=== PATIENT | female | born 1975 | race Caucasian/White ===

== ENCOUNTER 2022-02-11 16:40 | Inpatient (IN) ==
[2022-02-11] MEDS ORDERED: NS 1,000 ML IV 1,000 ML IV ONE (17:10)
[2022-02-11] MEDS ORDERED: ATIVAN INJ 2 MG VIAL IVP ONE (17:11)
[2022-02-11] MEDS ORDERED: ATIVAN INJ 2 MG VIAL ONE (17:18)
[2022-02-11] MEDS ORDERED: NS 1,000 ML IV 1,000 ML ONE (17:18)
[2022-02-11 17:38] LABS: BASOPHILS % (AUTO) 0.2 % (0.2-1.0); EOSINOPHILS % (AUTO) 0.2 % (0.9-2.9); HEMATOCRIT 37.2 % (36.0-47.0); HEMOGLOBIN 12.8 g/dL (12.0-16.0); LYMPHOCYTES # (AUTO) 0.8 X10^3/uL (1.3-2.9); LYMPHOCYTES % (AUTO) 7.7 % (21.0-51.0); MEAN CORPUSCULAR HEMOGLOBIN 31.8 pg (27.0-34.0); MEAN CORPUSCULAR HGB CONC 34.4 g/dL (33.0-35.0); MEAN CORPUSCULAR VOLUME 92.6 fL (80.0-100.0); MEAN PLATELET VOLUME 9.8 fL (7.4-11.0); MONOCYTES % (AUTO) 18.7 % (0.0-13.0); NEUTROPHILS # (AUTO) 7.7 x10^3/uL (2.2-4.8); NEUTROPHILS % (AUTO) 73.2 % (42.0-75.0); RED BLOOD COUNT 4.02 X10^6/uL (3.5-5.4); RED CELL DISTRIBUTION WIDTH 14.8 % (11.6-16.5); WHITE BLOOD COUNT 10.5 X10^3/uL (3.6-10.0)
--- NOTE | 2022-02-11 17:39 | ED.ABDFE ---
HPI Time Seen Time Seen by Provider: 02/11/22 16:54 Complaint Doctors Chief Complaint Comments: 46 y/o female presents for evaluation. C/o rectal pain, past 3-4 days. Has had a large protruding amount of tissue from her rectum. Denies any trauma. Denies anything causing it. Pt with a h/o alcohol abuse, goes on binges for several days. Recently had an episode of binge drinking, denies alcohol for the past 5 days. She called EMS last pm for anxiety, confusion, was seen at another facility. Was d/c'd without blood work, treatment. While there, had the MD check her rectum, reportedly sent home with a prescription for a suppository. Having persistent pain today, with several episodes of nausea and vomiting. Having lower abdominal pain, sharp, crampy. Pain worse of rectal region, does not radiate. + worse with moving and palpation. Nothing makes it better. Denies fever, chills, chest pain, dyspnea. Is not confused at the present. Pt's friend gives additional history - friends/family were about to try to get pt committed for alcohol detoxification. Pt has been hallucinating recently - talking to people not there, talking to inanimate objects. Pt states she was going to go back to [facility] (was there for 30 days without help, per friend). She disappeared last week for 3 days. COVID-19 Coronavirus risk:travel/contact w/high risk person: No Reviewed Nurses Notes Review: Yes Source History Provided: Patient and Friend Mode of arrival Mode of Arrival: Ambulatory Timing Came on: Gradually Duration Since Onset: Since Onset PMH PMH Past Medical History: Yes Past Medical History: Anxiety Past Medical History Comment: alcohol abuse Surgical History: (x 2) Past Surgical History Comment: Breast augmentation x 2 Family History History of Family Medical Conditions: No Social History Does patient currently use any type of tobacco product: No Does any household member use tobacco: No Alcohol Use: Heavy Do you use any recreational Drugs:: No Travel Risk Coronavirus risk:travel/contact w/high risk person: No Has patient experienced Coronavirus symptoms: No ROS Review of Systems Constitutional: No Symptoms Reported Eyes: No Symptoms Reported ENTM: No Symptoms Reported Respiratoy: No Symptoms Reported Cardiovascular: No Symptoms Reported Gastrointestinal/Abdominal: Abdominal Pain, Nausea and Vomiting Genitourinary: No Symptoms Reported Neurological: No Symptoms Reported Musculoskeletal: No Symptoms Reported Integumentary: No Symptoms Reported Hematologic/Lymphatic: No Symptoms Reported Psychiatric: Hallucinations All Other Systems: Reviewed and Negative PE Vital Signs Vitals: Temperature 99.2 F Pulse Rate 104 Respiratory Rate 37 Blood Pressure 125/88 O2 Sat by Pulse Oximetry 100 General Limitations: No Limitations General Appearance: Alert and Anxious Head Head Exam: Normal Inspection Eyes Eye exam: Normal Appearance, PERRL and EOMI ENT ENT Exam: Normal Exam and Mucous Membranes Moist Neck Neck Exam: Normal Inspection Chest Chest Inspection: Normal Inspection Respiratory Respiratory Exam: Normal Lung Sounds Bilat; negative Accessory Muscle Use and Respiratory Distress Respiratory Exam: Bilateral: Clear to Auscultation Cardiovascular Cardiovascular Exam: Regular Rate, Normal Rhythm, Tachycardia and Normal Heart Sounds Abdominal Exam Abdominal Exam: Normal Bowel Sounds, Soft and Tenderness (mild, all quadrants, no guarding or rebound.) Rectal Rectal Exam: Mass (+ large rectal/colon prolapse, 10 cms across, 10 cms protruding.) Back Back Exam: Normal Inspection; negative (R) CVA Tenderness and (L) CVA Tenderness Extremeties Extremities Exam: Normal Inspection and Full ROM; negative Edema Neurologic Neurological Exam: Alert, Oriented X3 and CN II-XII Intact; negative Motor Sensory Deficit Psychiatric Psychiatric Exam: Anxious Skin Skin Exam: Warm and Dry MDM Differential Diagnosis Other differential diagnosis: Prolapsed rectum COURSE Treatment Treatment: 46 y/o female presents with rectal pain. Has a severe rectal prolapse. W/u initiated. Sugar placed on the rectal prolapse. Given IV fluids, call put out to general surgery, Dr Godoy. 1750 - pt seen by Dr Godoy, he will admit the pt, attempt reduction of the rectal prolapse. After pt's clearance by surgery, she deserves placement for a rehab facility for alcohol abuse/misuse. Pt given IV ativan in the ER, placed on oral librium by Dr Godoy. ROR Labs Reviewed Laboratory Results Reviewed?: Yes Result Diagrams: 02/11/22 17:10 02/11/22 17:10 Laboratory: WBC 10.5 X10^3/uL (3.6-10.0) H 02/11/22 17:10 RBC 4.02 X10^6/uL (3.5-5.4) 02/11/22 17:10 Hgb 12.8 g/dL (12.0-16.0) 02/11/22 17:10 Hct 37.2 % (36.0-47.0) 02/11/22 17:10 MCV 92.6 fL (80.0-100.0) 02/11/22 17:10 MCH 31.8 pg (27.0-34.0) 02/11/22 17:10 MCHC 34.4 g/dL (33.0-35.0) 02/11/22 17:10 RDW 14.8 % (11.6-16.5) 02/11/22 17:10 Plt Count 169 X10^3/uL (150.0-450.0) 02/11/22 17:10 MPV 9.8 fL (7.4-11.0) 02/11/22 17:10 Neut % (Auto) 73.2 % (42.0-75.0) 02/11/22 17:10 Lymph % (Auto) 7.7 % (21.0-51.0) L 02/11/22 17:10 [place] % (Auto) 18.7 % (0.0-13.0) H 02/11/22 17:10 Eos % (Auto) 0.2 % (0.9-2.9) L 02/11/22 17:10 Baso % (Auto) 0.2 % (0.2-1.0) 02/11/22 17:10 Neut # (Auto) 7.7 x10^3/uL (2.2-4.8) H 02/11/22 17:10 Lymph # (Auto) 0.8 X10^3/uL (1.3-2.9) L 02/11/22 17:10 [place] # (Auto) 2.0 x10^3/uL (0.3-0.8) H 02/11/22 17:10 Eos # (Auto) 0.0 x10^3/uL (0.0-0.2) 02/11/22 17:10 Baso # (Auto) 0.0 X10^3/uL (0.0-0.1) 02/11/22 17:10 Absolute Nucleated RBC 0.0 /100WBC 02/11/22 17:10 PT 14.0 SECONDS (11.8-14.3) 02/11/22 17:10 INR Target Range - 02/11/22 17:10 INR 1.14 (0.8-1.3) 02/11/22 17:10 APTT 25.4 SECONDS (22.9-36.5) 02/11/22 17:10 PTT Comment - 02/11/22 17:10 Sodium 140 mmol/L (136-145) 02/11/22 17:10 Corrected Sodium TNP 02/11/22 17:10 Potassium 3.1 mmol/L (3.5-5.1) L 02/11/22 17:10 Chloride 101 mmol/L (98-107) 02/11/22 17:10 Carbon Dioxide 25.7 mmol/L (21-32) 02/11/22 17:10 BUN 14 mg/dL (7-18) 02/11/22 17:10 Creatinine 0.70 mg/dL (0.55-1.02) 02/11/22 17:10 Est GFR (MDRD) Af Amer > 60 (>60) 02/11/22 17:10 Est GFR (MDRD) Non-Af > 60 (>60) 02/11/22 17:10 Glucose 94 mg/dL (65-99) 02/11/22 17:10 Calcium 9.0 mg/dL (8.5-10.1) 02/11/22 17:10 Corrected Calcium TNP 02/11/22 17:10 Total Bilirubin 0.80 mg/dL (0.2-1.0) 02/11/22 17:10 AST 114 Units/L (15-37) H 02/11/22 17:10 ALT 167 Units/L (12-78) H 02/11/22 17:10 Alkaline Phosphatase 75 Units/L (46-116) 02/11/22 17:10 Ammonia 16 umol/L (11-32) 02/11/22 17:10 Total Protein 6.9 g/dL (6.4-8.2) 02/11/22 17:10 Albumin 4.3 g/dL (3.4-5.0) 02/11/22 17:10 Globulin 2.6 g/dL (2.5-4.5) 02/11/22 17:10 Albumin/Globulin Ratio 1.7 Ratio (1.1-2.1) 02/11/22 17:10 Lipase 89 Units/L (73-393) 02/11/22 17:10 Specimen Type Catherized urine 02/11/22 17:57 Urine Color Yellow (YELLOW) 02/11/22 17:57 Urine Appearance Clear (CLEAR) 02/11/22 17:57 Urine pH 5.0 (5.0 - 8.0) 02/11/22 17:57 Ur Specific [place] 1.020 (1.000-1.030) 02/11/22 17:57 Urine Protein 2+ (NEGATIVE) 02/11/22 17:57 Urine Glucose (UA) Negative (NEGATIVE) 02/11/22 17:57 Urine Ketones 2+ (NEGATIVE) 02/11/22 17:57 Urine Occult Blood 2+ (NEGATIVE) 02/11/22 17:57 Urine Nitrite Negative (NEGATIVE) 02/11/22 17:57 Urine Bilirubin Negative (NEGATIVE) 02/11/22 17:57 Urine Urobilinogen Normal (NORMAL) 02/11/22 17:57 Ur Leukocyte Esterase 1+ (NEGATIVE) 02/11/22 17:57 Urine RBC 3-5 /HPF (0-3) A 02/11/22 17:57 Urine WBC 3-5 /HPF (0-5) 02/11/22 17:57 Ur Squamous Epith Cells Few /HPF (NEGATIVE) 02/11/22 17:57 Urine Bacteria Trace /HPF (NEGATIVE) 02/11/22 17:57 Urine Mucus Few /HPF (NEGATIVE) 02/11/22 17:57 Ur Culture Indicated? No/not indicated 02/11/22 17:57 Urine Opiates Screen Negative (NEG=<300) 02/11/22 17:57 Urine Methadone Screen Negative (NEG=<300) 02/11/22 17:57 Ur Barbiturates Screen Negative (NEG=<200) 02/11/22 17:57 Ur Phencyclidine Scrn Negative (NEG=<25) 02/11/22 17:57 Ur Amphetamines Screen Negative (NEG=<1000) 02/11/22 17:57 U Benzodiazepines Scrn Negative (NEG=<200) 02/11/22 17:57 Urine Cocaine Screen Negative (NEG=<300) 02/11/22 17:57 U Marijuana (THC) Screen Negative (NEG=<50) 02/11/22 17:57 SARS CoV-2 RNA Rapid DEBORAH Negative (NEGATIVE) 02/11/22 17:59 Opioid Opioid Risk Tool Total: 0 Total Score Risk Category: Low Risk Copyright: Berny MUSA predicting aberrant behaviors Diagnosis Discharge Problem: Complete rectal prolapse, Alcohol abuse
[2022-02-11 18:03] LABS: ALANINE AMINOTRANSFERASE 167 Units/L (12-78); ALBUMIN 4.3 g/dL (3.4-5.0); ALKALINE PHOSPHATASE 75 Units/L (46-116); ASPARTATE AMINO TRANSFERASE 114 Units/L (15-37); BLOOD UREA NITROGEN 14 mg/dL (7-18); CARBON DIOXIDE 25.7 mmol/L (21-32); CHLORIDE 101 mmol/L (98-107); LIPASE 89 Units/L (73-393); SODIUM 140 mmol/L (136-145); TOTAL PROTEIN 6.9 g/dL (6.4-8.2); eGFR NON BLACK RACES > 60 (>60)
[2022-02-11] MEDS ORDERED: MORPHINE SULFATE INJ 2 MG INJ IVP PRN (18:05)
[2022-02-11] MEDS ORDERED: ZOFRAN INJ 4 MG VIAL IVP PRN (18:05)
[2022-02-11 18:07] LABS: BILIRUBIN,URINE NEGATIVE (NEGATIVE); BLOOD/HEMOGLOBIN,URINE 2+ (NEGATIVE); GLUCOSE, URINE NEGATIVE (NEGATIVE); KETONES,URINE 2+ (NEGATIVE); LEUKOCYTE ESTERASE ,URINE 1+ (NEGATIVE); NITRITES,URINE NEGATIVE (NEGATIVE); PROTEIN,URINE 2+ (NEGATIVE); UROBILINOGEN,URINE NORMAL (NORMAL)
[2022-02-11 18:16] LABS: APPEARANCE,URINE CLEAR (CLEAR); BACTERIA,URINE TRACE /HPF (NEGATIVE); COLOR,URINE YELLOW (YELLOW); SQUAMOUS EPITHELIAL CELL,UR FEW /HPF (NEGATIVE)
--- NOTE | 2022-02-11 18:37 | RAD ---
HISTORY:Lower abdominal pain, nausea and vomitingStudy: Acute abdominal seriesComparison:NoneFindings:Lungs are grossly clear. No pneumothorax or effusion. There appears to be a right-sided aortic arch which could be confirmed with CT chest. Heart size is normal.Upright and right side up decubitus views of the abdomen are submitted demonstrating a nonobstructive bowel gas pattern. Moderate stool in the colon. No gross pneumoperitoneum. No radiopaque renal stones identified. Soft tissues are intact.IMPRESSION:Nonobstructive bowel gas pattern. Moderate stool in the colon.Apparent right-sided aortic arch. Chest CT could be performed for confirmation and further anatomic delineation.Electronically signed by: LANE JOHNSON (Feb 11, 2022 18:36:01)
[2022-02-11] MEDS ORDERED: ZOSYN VIAL 3.375 GRAMS IV ONE (18:56)
[2022-02-11] MEDS ORDERED: NS 100 ML IV 100 ML ONE (18:57)
[2022-02-11] MEDS ORDERED: D5 1/2 NS 1,000 ML 1,000 ML IV ONE (19:05)
[2022-02-11] MEDS: D5 1/2 NS 1,000 ML 1,000 ML IV SCH (19:09)
[2022-02-11] MEDS: ZOSYN VIAL 3.375 GRAMS 3.375 G in NS 100 ML IV 100 ML IV SCH ×2 (19:10→21:04)
[2022-02-11] MEDS: LIBRIUM PO PRN (20:45)
[2022-02-11 22:43] VITALS: BMI 22.8
[2022-02-11] MEDS ORDERED: POTASSIUM CHL 60 MEQ/NS 0.45% 500 ML IV PRN (22:52)
[2022-02-11] MEDS ORDERED: POTASSIUM CHLORIDE LIQ 20 MEQ UDC PO PRN (22:52)
[2022-02-11] MEDS ORDERED: MICRO K EXTEN CAP 10 MEQ PO PRN (22:52)
[2022-02-11] MEDS ORDERED: POTASSIUM CHL 40 MEQ/NS 0.45% 500 ML IV PRN (22:52)
[2022-02-11] MEDS ORDERED: KLOR-CON PO PRN (22:52)
[2022-02-11] MEDS: K-RIDER 10 MEQ/NS 100 ML 10 MEQ/100 ML BAG IV PRN (23:50)
[2022-02-12] MEDS: K-RIDER 10 MEQ/NS 100 ML 10 MEQ/100 ML BAG IV PRN ×3 (00:56→03:05)
[2022-02-12] MEDS: D5 1/2 NS 1,000 ML 1,000 ML IV SCH ×3 (03:05→21:19)
[2022-02-12] MEDS: ZOSYN VIAL 3.375 GRAMS 3.375 G in NS 100 ML IV 100 ML IV SCH ×3 (05:42→21:19)
[2022-02-12 06:48] LABS: BASOPHILS % (AUTO) 0.3 % (0.2-1.0); EOSINOPHILS # (AUTO) 0.2 x10^3/uL (0.0-0.2); EOSINOPHILS % (AUTO) 3.2 % (0.9-2.9); HEMOGLOBIN 12.1 g/dL (12.0-16.0); LYMPHOCYTES % (AUTO) 27.5 % (21.0-51.0); MEAN CORPUSCULAR HEMOGLOBIN 31.5 pg (27.0-34.0); MEAN CORPUSCULAR HGB CONC 33.6 g/dL (33.0-35.0); MEAN CORPUSCULAR VOLUME 93.8 fL (80.0-100.0); MONOCYTES # (AUTO) 1.1 x10^3/uL (0.3-0.8); MONOCYTES % (AUTO) 15.7 % (0.0-13.0); NEUTROPHILS # (AUTO) 3.8 x10^3/uL (2.2-4.8); NEUTROPHILS % (AUTO) 53.3 % (42.0-75.0); RED BLOOD COUNT 3.83 X10^6/uL (3.5-5.4); RED CELL DISTRIBUTION WIDTH 15.2 % (11.6-16.5); WHITE BLOOD COUNT 7.2 X10^3/uL (3.6-10.0)
[2022-02-12 07:11] LABS: ALANINE AMINOTRANSFERASE 119 Units/L (12-78); ALBUMIN 3.3 g/dL (3.4-5.0); ALKALINE PHOSPHATASE 62 Units/L (46-116); ASPARTATE AMINO TRANSFERASE 70 Units/L (15-37); BLOOD UREA NITROGEN 11 mg/dL (7-18); CALCIUM 8.1 mg/dL (8.5-10.1); CARBON DIOXIDE 23.8 mmol/L (21-32); CHLORIDE 105 mmol/L (98-107); COR CA(FOR HYPOALB) 8.7 mg/dL (8.5-10.1); CREATININE 0.58 mg/dL (0.55-1.02); MAGNESIUM 1.8 mg/dL (1.7-2.9); SODIUM 139 mmol/L (136-145); TOTAL PROTEIN 6.1 g/dL (6.4-8.2); eGFR NON BLACK RACES > 60 (>60)
[2022-02-12] MEDS: MAGNESIUM SULFATE 1 GRAM/100 mL PREMIX 1 G/100 ML BAG IV PRN ×3 (08:32→16:48)
[2022-02-12] MEDS ORDERED: MARCAINE/EPINEPHRINE ONE (10:20)
[2022-02-12] MEDS ORDERED: BETADINE SOLN ONE (10:21)
[2022-02-12] MEDS ORDERED: LR 1,000 ML IV 1,000 ML IV ONE (10:30)
[2022-02-12] MEDS ORDERED: FENTANYL VIAL INJ 100 mcg ONE (10:39)
[2022-02-12] MEDS ORDERED: VERSED ONE (10:39)
[2022-02-12] MEDS ORDERED: DIPRIVAN VIAL 20 ML ONE (10:41)
[2022-02-12] MEDS ORDERED: SUPRANE ONE (11:11)
[2022-02-12] MEDS ORDERED: EPHEDRINE SULFATE INJ ONE (11:21)
[2022-02-12] MEDS ORDERED: PHENERGAN INJ 25 MG IM PRN (11:50)
[2022-02-12] MEDS ORDERED: BARHEMSYS INJ IVP PRN (11:50)
[2022-02-12] MEDS ORDERED: DILAUDID INJ IVP PRN (11:50)
[2022-02-12] MEDS ORDERED: BENADRYL INJ 50 MG VIAL IVP PRN (11:50)
[2022-02-12] MEDS ORDERED: REGLAN INJ 10 MG VIAL IVP PRN (11:50)
[2022-02-12] MEDS ORDERED: ZOFRAN INJ 4 MG VIAL IVP PRN (11:50)
[2022-02-12] MEDS: K-DUR TAB 20 MEQ PO PRN (14:43)
[2022-02-12] MEDS: LIBRIUM PO PRN (23:20)
[2022-02-13] MEDS: ZOSYN VIAL 3.375 GRAMS 3.375 G in NS 100 ML IV 100 ML IV SCH ×3 (05:21→21:13)
[2022-02-13] MEDS: D5 1/2 NS 1,000 ML 1,000 ML IV SCH ×3 (05:21→21:12)
[2022-02-13 07:56] LABS: ALANINE AMINOTRANSFERASE 86 Units/L (12-78); ALBUMIN 2.5 g/dL (3.4-5.0); ALKALINE PHOSPHATASE 58 Units/L (46-116); ASPARTATE AMINO TRANSFERASE 38 Units/L (15-37); BLOOD UREA NITROGEN 7 mg/dL (7-18); CALCIUM 7.5 mg/dL (8.5-10.1); CARBON DIOXIDE 24.4 mmol/L (21-32); CHLORIDE 109 mmol/L (98-107); COR CA(FOR HYPOALB) 8.7 mg/dL (8.5-10.1); CREATININE 0.57 mg/dL (0.55-1.02); SODIUM 141 mmol/L (136-145); TOTAL PROTEIN 5.1 g/dL (6.4-8.2); eGFR NON BLACK RACES > 60 (>60)
[2022-02-13 08:06] LABS: BASOPHILS % (AUTO) 0.5 % (0.2-1.0); EOSINOPHILS # (AUTO) 0.2 x10^3/uL (0.0-0.2); HEMATOCRIT 32.4 % (36.0-47.0); HEMOGLOBIN 10.9 g/dL (12.0-16.0); LYMPHOCYTES % (AUTO) 34.4 % (21.0-51.0); MEAN CORPUSCULAR HEMOGLOBIN 31.8 pg (27.0-34.0); MEAN CORPUSCULAR HGB CONC 33.7 g/dL (33.0-35.0); MEAN CORPUSCULAR VOLUME 94.6 fL (80.0-100.0); MEAN PLATELET VOLUME 9.8 fL (7.4-11.0); MONOCYTES # (AUTO) 0.9 x10^3/uL (0.3-0.8); MONOCYTES % (AUTO) 16.2 % (0.0-13.0); NEUTROPHILS # (AUTO) 2.6 x10^3/uL (2.2-4.8); NEUTROPHILS % (AUTO) 44.9 % (42.0-75.0); RED BLOOD COUNT 3.43 X10^6/uL (3.5-5.4); RED CELL DISTRIBUTION WIDTH 15.1 % (11.6-16.5); WHITE BLOOD COUNT 5.8 X10^3/uL (3.6-10.0)
[2022-02-13] MEDS ORDERED: DILAUDID INJ IVP ONE (08:52)
[2022-02-13] MEDS ORDERED: DILAUDID INJ ONE (08:53)
--- NOTE | 2022-02-13 09:26 | DR.PROGNOT ---
Hospital Progress Notes - Progress Note for Day of: Progress Note Date: 02/13/22 - Chief Complaint Chief Complaint: recurred rectal prolapse last night . Pt was sedated with Dilauded and the prolapse was reduced .. - Past Medical Family Social History Past Med/Fam/Surg Hx: No changes since H&P Allergies: Allergies Sulfa (Sulfonamide Antibiotics) Adverse Reaction (Verified 02/11/22 16:42) - Review Of Systems ROS: No change since H&P - Vital Signs Vital Signs: Temperature 98.1 F Pulse Rate [Left Radial] 68 Pulse Rate 63 Respiratory Rate 18 Blood Pressure [Right Arm] 109/69 Blood Pressure [Left Arm] 92/53 Blood Pressure 107/67 O2 Sat by Pulse Oximetry 98 - Physical Exam Oriented: Normal Eyes: Normal Ear: Normal Nose: Normal Throat: Normal Respiratory: Normal : Normal GI:Auscultation: Normal GI:Palpation: Normal GI: Tenderness: Normal Mood Description: Calm Speech Pattern: Clear, Appropriate - Laboratory and Diagnostics Result Diagrams: 02/13/22 06:09 02/13/22 06:09 Labs: Laboratory WBC 5.8 X10^3/uL (3.6-10.0) 02/13/22 06:09 RBC 3.43 X10^6/uL (3.5-5.4) L 02/13/22 06:09 Hgb 10.9 g/dL (12.0-16.0) L 02/13/22 06:09 Hct 32.4 % (36.0-47.0) L 02/13/22 06:09 MCV 94.6 fL (80.0-100.0) 02/13/22 06:09 MCH 31.8 pg (27.0-34.0) 02/13/22 06:09 MCHC 33.7 g/dL (33.0-35.0) 02/13/22 06:09 RDW 15.1 % (11.6-16.5) 02/13/22 06:09 Plt Count 148 X10^3/uL (150.0-450.0) L 02/13/22 06:09 MPV 9.8 fL (7.4-11.0) 02/13/22 06:09 Neut % (Auto) 44.9 % (42.0-75.0) 02/13/22 06:09 Lymph % (Auto) 34.4 % (21.0-51.0) 02/13/22 06:09 [place] % (Auto) 16.2 % (0.0-13.0) H 02/13/22 06:09 Eos % (Auto) 4.0 % (0.9-2.9) H 02/13/22 06:09 Baso % (Auto) 0.5 % (0.2-1.0) 02/13/22 06:09 Neut # (Auto) 2.6 x10^3/uL (2.2-4.8) 02/13/22 06:09 Lymph # (Auto) 2.0 X10^3/uL (1.3-2.9) 02/13/22 06:09 [place] # (Auto) 0.9 x10^3/uL (0.3-0.8) H 02/13/22 06:09 Eos # (Auto) 0.2 x10^3/uL (0.0-0.2) 02/13/22 06:09 Baso # (Auto) 0.0 X10^3/uL (0.0-0.1) 02/13/22 06:09 Absolute Nucleated RBC 0.1 /100WBC 02/13/22 06:09 PT 14.0 SECONDS (11.8-14.3) 02/11/22 17:10 INR Target Range - 02/11/22 17:10 INR 1.14 (0.8-1.3) 02/11/22 17:10 APTT 25.4 SECONDS (22.9-36.5) 02/11/22 17:10 PTT Comment - 02/11/22 17:10 Sodium 141 mmol/L (136-145) 02/13/22 06:09 Corrected Sodium TNP 02/13/22 06:09 Potassium 3.2 mmol/L (3.5-5.1) L 02/13/22 06:09 Chloride 109 mmol/L (98-107) H 02/13/22 06:09 Carbon Dioxide 24.4 mmol/L (21-32) 02/13/22 06:09 BUN 7 mg/dL (7-18) 02/13/22 06:09 Creatinine 0.57 mg/dL (0.55-1.02) 02/13/22 06:09 Est GFR (MDRD) Af Amer > 60 (>60) 02/13/22 06:09 Est GFR (MDRD) Non-Af > 60 (>60) 02/13/22 06:09 Glucose 94 mg/dL (65-99) 02/13/22 06:09 Calcium 7.5 mg/dL (8.5-10.1) L 02/13/22 06:09 Corrected Calcium 8.7 mg/dL (8.5-10.1) 02/13/22 06:09 Magnesium 2.2 mg/dL (1.7-2.9) 02/13/22 06:09 Total Bilirubin 0.30 mg/dL (0.2-1.0) 02/13/22 06:09 AST 38 Units/L (15-37) H 02/13/22 06:09 ALT 86 Units/L (12-78) H 02/13/22 06:09 Alkaline Phosphatase 58 Units/L (46-116) 02/13/22 06:09 Ammonia 16 umol/L (11-32) 02/11/22 17:10 Total Protein 5.1 g/dL (6.4-8.2) L 02/13/22 06:09 Albumin 2.5 g/dL (3.4-5.0) L 02/13/22 06:09 Globulin 2.6 g/dL (2.5-4.5) 02/13/22 06:09 Albumin/Globulin Ratio 1.0 Ratio (1.1-2.1) L 02/13/22 06:09 Lipase 89 Units/L (73-393) 02/11/22 17:10 Vitamin B12 445 pg/mL (193-986) 02/12/22 05:40 Folate > 20.0 ng/mL (>8.6) 02/12/22 05:40 TSH 3rd Generation 2.128 uIU/mL (0.358-3.74) 02/12/22 05:40 Specimen Type Catherized urine 02/11/22 17:57 Urine Color Yellow (YELLOW) 02/11/22 17:57 Urine Appearance Clear (CLEAR) 02/11/22 17:57 Urine pH 5.0 (5.0 - 8.0) 02/11/22 17:57 Ur Specific [place] 1.020 (1.000-1.030) 02/11/22 17:57 Urine Protein 2+ (NEGATIVE) 02/11/22 17:57 Urine Glucose (UA) Negative (NEGATIVE) 02/11/22 17:57 Urine Ketones 2+ (NEGATIVE) 02/11/22 17:57 Urine Occult Blood 2+ (NEGATIVE) 02/11/22 17:57 Urine Nitrite Negative (NEGATIVE) 02/11/22 17:57 Urine Bilirubin Negative (NEGATIVE) 02/11/22 17:57 Urine Urobilinogen Normal (NORMAL) 02/11/22 17:57 Ur Leukocyte Esterase 1+ (NEGATIVE) 02/11/22 17:57 Urine RBC 3-5 /HPF (0-3) A 02/11/22 17:57 Urine WBC 3-5 /HPF (0-5) 02/11/22 17:57 Ur Squamous Epith Cells Few /HPF (NEGATIVE) 02/11/22 17:57 Urine Bacteria Trace /HPF (NEGATIVE) 02/11/22 17:57 Urine Mucus Few /HPF (NEGATIVE) 02/11/22 17:57 Ur Culture Indicated? No/not indicated 02/11/22 17:57 Urine Opiates Screen Negative (NEG=<300) 02/11/22 17:57 Urine Methadone Screen Negative (NEG=<300) 02/11/22 17:57 Ur Barbiturates Screen Negative (NEG=<200) 02/11/22 17:57 Ur Phencyclidine Scrn Negative (NEG=<25) 02/11/22 17:57 Ur Amphetamines Screen Negative (NEG=<1000) 02/11/22 17:57 U Benzodiazepines Scrn Negative (NEG=<200) 02/11/22 17:57 Urine Cocaine Screen Negative (NEG=<300) 02/11/22 17:57 U Marijuana (THC) Screen Negative (NEG=<50) 02/11/22 17:57 SARS CoV-2 RNA Rapid DEBORAH Negative (NEGATIVE) 02/11/22 17:59 - Assessment and Plan 1: recurrent rectal prolapse . alcohol abuse . to keep on clear liquid and for perineal resection of rectal prolase on tuesday .. - Problem Patient Problems: Patient Problems Complete rectal prolapse (Acute) K62.3 Alcohol abuse (Acute) F10.10
--- NOTE | 2022-02-13 09:26 | CT ---
HISTORYABDNORMAL CHEST XRAYSTUDYCHEST WITH [id number] axial images of the chest were obtained from the thoracic inlet to the upper abdomen after the administration of IV contrast. Dose reduction techniques including Automated Exposure Control (AEC) and adjustment of mA and kV were utilized.FINDINGSRight-sided aortic arch with apparent left subclavian artery. Thoracic esophagus between trachea and apparent left subclavian artery. No visible lymphadenopathy. Bilateral breast implants. Lungs show minor left base atelectasis. Central airways grossly patent. Limited views upper abdomen grossly unremarkable. No acute osseous finding.IMPRESSIONNo acute appearing finding. 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
[2022-02-13] MEDS: K-RIDER 10 MEQ/NS 100 ML 10 MEQ/100 ML BAG IV PRN ×4 (10:25→14:39)
--- NOTE | 2022-02-13 16:07 | DR.CONSULT ---
CONSULT Consultation for Day of: Date: 02/12/22 Chief Complaint Chief Complaint: Medical management of alcoholic DTs with hallucinations. Allergies Allergies Allergy/AdvReac Type Severity Reaction Status Date / Time Sulfa (Sulfonamide AdvReac Verified 02/11/22 16:42 Antibiotics) History of Present Illness History of Present Illness: This is a pleasant 46-year-old white female. She came in with a rectal prolapse which has been managed by general surgery. It is also noted she had been drinking heavily for the last 9 days straight. She has been drinking hard liquor. At this time she does report seeing things that are not there. She is currently on Librium 25 mg a day every 6 hours. She does not report she plans to go to inpatient treatment soon if she does have a hospital for alcoholism. It is also noted on her chest x-ray that she has a right-sided aortic arch in which the radiologist recommended a CT scan of her chest. Past Medical History Past Medical History: Anxiety Past Surgical History Surgical History: Family History Family Medical History: Hypertension Social History Does patient currently use any type of tobacco product: Yes Have you used tobacco products in the last 12 months: Yes Type of Tobacco Use: Cigarettes Does any household member use tobacco: No Alcohol Use: Heavy, DAILY and Other Medications Home Medications: Sulfa (Sulfonamide Antibiotics) Adverse Reaction (Verified 02/11/22 16:42) CONTINUE taking the following medications lorazepam 0.5 mg PO BID PRN 02/11/22 [History] multivitamin [Multi-Vitamin] 1 tab PO QAM 02/11/22 [History] Review of Systems Constitutional: No Symptoms Reported Eyes: No Symptoms Reported ENT: No Symptoms Reported Respiratory: No Symptoms Reported Cardiovascular: No Symptoms Reported Gastrointestinal: No Symptoms Reported Genitourinary: No Symptoms Reported Musculoskeletal: No Symptoms Reported Skin: No Symptoms Reported Neurological: No Symptoms Reported Physical Exam Vital Signs: Temperature 97.6 F Pulse Rate [Left Radial] 56 Pulse Rate 63 Respiratory Rate 16 Blood Pressure [Right Arm] 109/69 Blood Pressure [Left Arm] 90/51 Blood Pressure 107/67 O2 Sat by Pulse Oximetry 97 Oriented: Normal Eyes: Normal Ear: Normal Nose: Normal Throat: Normal Respiratory: Clear Throughout Cardiovascular: Normal : Normal Auscultation: Bowel Sounds: Normal Palpation: Normal Tenderness: Normal Skin: Normal Musculoskeletal: Normal Psychiatric: Normal Mood Description: Calm Affect: Normal; negative Angry Speech Pattern: Clear and Appropriate Plan (1) Complete rectal prolapse: Status: Acute Plan: Management per general surgery. (2) Alcohol abuse: Status: Acute Plan: Continue Librium 25 mg by mouth every 6 hours. (3) Alcohol withdrawal hallucinosis: Status: Acute Plan: If hallucinations continue I will start her on risperidone. 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 (5) Anxiety: Status: Acute Plan: The patient's current Librium treatment should suffice with her underlying anxiety.
--- NOTE | 2022-02-13 16:11 | PCM.PROG ---
Progress Note Progress Note for Day of Date of Exam: 02/13/22 Subjective Subjective: The patient is alert this morning. She has noted complexes morning. I discussed the CT findings from yesterday. The CT did confirm a right-sided aortic arch which is a normal anatomical variant. She had her rectocele reduced yesterday. Since then it has come back out. She is currently awaiting to have it reduced again this morning. Noted changes in treatment today we will continue with what the patient is currently receiving. Past Medical Family Social History Past Med/Fam/Surg Hx: No changes since H&P Allergies: Allergies Sulfa (Sulfonamide Antibiotics) Adverse Reaction (Verified 02/11/22 16:42) Review of Systems ROS: No change since H&P Vital Signs and I&O's Vital Signs: Temperature 97.6 F Pulse Rate [Left Radial] 56 Pulse Rate 63 Respiratory Rate 16 Blood Pressure [Right Arm] 109/69 Blood Pressure [Left Arm] 90/51 Blood Pressure 107/67 O2 Sat by Pulse Oximetry 97 Intake and Output: Intake & Output 02/11/22 02/12/22 02/13/22 02/14/22 11:59 11:59 11:59 11:59 Intake Total 1550 / 1550 2093 / 2093 Output Total 625 / 625 1025 / 1025 Balance 925 / 925 1069 / 1069 1959 Physical Exam Oriented: Normal Eyes: Normal Ear: Normal Nose: Normal Throat: Normal Respiratory: Normal Cardiovascular: Normal : Normal Auscultation: Bowel Sounds: Normal Tenderness: Normal Skin: Normal Musculoskeletal: Normal Psychiatric: Normal Mood Description: Calm Affect: Normal; negative Angry Speech Pattern: Clear and Appropriate Laboratory and Diagnostics Result Diagrams: 02/13/22 06:09 02/13/22 06:09 Labs: Laboratory WBC 5.8 X10^3/uL (3.6-10.0) 02/13/22 06:09 RBC 3.43 X10^6/uL (3.5-5.4) L 02/13/22 06:09 Hgb 10.9 g/dL (12.0-16.0) L 02/13/22 06:09 Hct 32.4 % (36.0-47.0) L 02/13/22 06:09 MCV 94.6 fL (80.0-100.0) 02/13/22 06:09 MCH 31.8 pg (27.0-34.0) 02/13/22 06:09 MCHC 33.7 g/dL (33.0-35.0) 02/13/22 06:09 RDW 15.1 % (11.6-16.5) 02/13/22 06:09 Plt Count 148 X10^3/uL (150.0-450.0) L 02/13/22 06:09 MPV 9.8 fL (7.4-11.0) 02/13/22 06:09 Neut % (Auto) 44.9 % (42.0-75.0) 02/13/22 06:09 Lymph % (Auto) 34.4 % (21.0-51.0) 02/13/22 06:09 [place] % (Auto) 16.2 % (0.0-13.0) H 02/13/22 06:09 Eos % (Auto) 4.0 % (0.9-2.9) H 02/13/22 06:09 Baso % (Auto) 0.5 % (0.2-1.0) 02/13/22 06:09 Neut # (Auto) 2.6 x10^3/uL (2.2-4.8) 02/13/22 06:09 Lymph # (Auto) 2.0 X10^3/uL (1.3-2.9) 02/13/22 06:09 [place] # (Auto) 0.9 x10^3/uL (0.3-0.8) H 02/13/22 06:09 Eos # (Auto) 0.2 x10^3/uL (0.0-0.2) 02/13/22 06:09 Baso # (Auto) 0.0 X10^3/uL (0.0-0.1) 02/13/22 06:09 Absolute Nucleated RBC 0.1 /100WBC 02/13/22 06:09 PT 14.0 SECONDS (11.8-14.3) 02/11/22 17:10 INR Target Range - 02/11/22 17:10 INR 1.14 (0.8-1.3) 02/11/22 17:10 APTT 25.4 SECONDS (22.9-36.5) 02/11/22 17:10 PTT Comment - 02/11/22 17:10 Sodium 141 mmol/L (136-145) 02/13/22 06:09 Corrected Sodium TNP 02/13/22 06:09 Potassium 3.2 mmol/L (3.5-5.1) L 02/13/22 06:09 Chloride 109 mmol/L (98-107) H 02/13/22 06:09 Carbon Dioxide 24.4 mmol/L (21-32) 02/13/22 06:09 BUN 7 mg/dL (7-18) 02/13/22 06:09 Creatinine 0.57 mg/dL (0.55-1.02) 02/13/22 06:09 Est GFR (MDRD) Af Amer > 60 (>60) 02/13/22 06:09 Est GFR (MDRD) Non-Af > 60 (>60) 02/13/22 06:09 Glucose 94 mg/dL (65-99) 02/13/22 06:09 Calcium 7.5 mg/dL (8.5-10.1) L 02/13/22 06:09 Corrected Calcium 8.7 mg/dL (8.5-10.1) 02/13/22 06:09 Magnesium 2.2 mg/dL (1.7-2.9) 02/13/22 06:09 Total Bilirubin 0.30 mg/dL (0.2-1.0) 02/13/22 06:09 AST 38 Units/L (15-37) H 02/13/22 06:09 ALT 86 Units/L (12-78) H 02/13/22 06:09 Alkaline Phosphatase 58 Units/L (46-116) 02/13/22 06:09 Ammonia 16 umol/L (11-32) 02/11/22 17:10 Total Protein 5.1 g/dL (6.4-8.2) L 02/13/22 06:09 Albumin 2.5 g/dL (3.4-5.0) L 02/13/22 06:09 Globulin 2.6 g/dL (2.5-4.5) 02/13/22 06:09 Albumin/Globulin Ratio 1.0 Ratio (1.1-2.1) L 02/13/22 06:09 Lipase 89 Units/L (73-393) 02/11/22 17:10 Vitamin B12 445 pg/mL (193-986) 02/12/22 05:40 Folate > 20.0 ng/mL (>8.6) 02/12/22 05:40 TSH 3rd Generation 2.128 uIU/mL (0.358-3.74) 02/12/22 05:40 Specimen Type Catherized urine 02/11/22 17:57 Urine Color Yellow (YELLOW) 02/11/22 17:57 Urine Appearance Clear (CLEAR) 02/11/22 17:57 Urine pH 5.0 (5.0 - 8.0) 02/11/22 17:57 Ur Specific [place] 1.020 (1.000-1.030) 02/11/22 17:57 Urine Protein 2+ (NEGATIVE) 02/11/22 17:57 Urine Glucose (UA) Negative (NEGATIVE) 02/11/22 17:57 Urine Ketones 2+ (NEGATIVE) 02/11/22 17:57 Urine Occult Blood 2+ (NEGATIVE) 02/11/22 17:57 Urine Nitrite Negative (NEGATIVE) 02/11/22 17:57 Urine Bilirubin Negative (NEGATIVE) 02/11/22 17:57 Urine Urobilinogen Normal (NORMAL) 02/11/22 17:57 Ur Leukocyte Esterase 1+ (NEGATIVE) 02/11/22 17:57 Urine RBC 3-5 /HPF (0-3) A 02/11/22 17:57 Urine WBC 3-5 /HPF (0-5) 02/11/22 17:57 Ur Squamous Epith Cells Few /HPF (NEGATIVE) 02/11/22 17:57 Urine Bacteria Trace /HPF (NEGATIVE) 02/11/22 17:57 Urine Mucus Few /HPF (NEGATIVE) 02/11/22 17:57 Ur Culture Indicated? No/not indicated 02/11/22 17:57 Urine Opiates Screen Negative (NEG=<300) 02/11/22 17:57 Urine Methadone Screen Negative (NEG=<300) 02/11/22 17:57 Ur Barbiturates Screen Negative (NEG=<200) 02/11/22 17:57 Ur Phencyclidine Scrn Negative (NEG=<25) 02/11/22 17:57 Ur Amphetamines Screen Negative (NEG=<1000) 02/11/22 17:57 U Benzodiazepines Scrn Negative (NEG=<200) 02/11/22 17:57 Urine Cocaine Screen Negative (NEG=<300) 02/11/22 17:57 U Marijuana (THC) Screen Negative (NEG=<50) 02/11/22 17:57 SARS CoV-2 RNA Rapid DEBORAH Negative (NEGATIVE) 02/11/22 17:59 Plan (1) Hypokalemia: Status: Acute Plan: Potassium replacement protocol. 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
[2022-02-13] MEDS ORDERED: NS 500 ML IV 500 ML IV ONE (19:32)
[2022-02-13] MEDS ORDERED: NS 500 ML IV 500 ML IV PRN (21:13)
[2022-02-14] MEDS: ZOSYN VIAL 3.375 GRAMS 3.375 G in NS 100 ML IV 100 ML IV SCH ×3 (05:05→21:29)
[2022-02-14] MEDS: D5 1/2 NS 1,000 ML 1,000 ML IV SCH ×3 (05:05→19:07)
[2022-02-14 05:24] LABS: BASOPHILS % (AUTO) 0.7 % (0.2-1.0); EOSINOPHILS # (AUTO) 0.2 x10^3/uL (0.0-0.2); EOSINOPHILS % (AUTO) 5.5 % (0.9-2.9); HEMATOCRIT 31.9 % (36.0-47.0); HEMOGLOBIN 10.9 g/dL (12.0-16.0); LYMPHOCYTES # (AUTO) 1.4 X10^3/uL (1.3-2.9); LYMPHOCYTES % (AUTO) 32.7 % (21.0-51.0); MEAN CORPUSCULAR HEMOGLOBIN 31.8 pg (27.0-34.0); MEAN CORPUSCULAR HGB CONC 34.1 g/dL (33.0-35.0); MEAN CORPUSCULAR VOLUME 93.4 fL (80.0-100.0); MEAN PLATELET VOLUME 9.3 fL (7.4-11.0); MONOCYTES # (AUTO) 0.7 x10^3/uL (0.3-0.8); MONOCYTES % (AUTO) 17.6 % (0.0-13.0); NEUTROPHILS # (AUTO) 1.8 x10^3/uL (2.2-4.8); NEUTROPHILS % (AUTO) 43.5 % (42.0-75.0); RED BLOOD COUNT 3.42 X10^6/uL (3.5-5.4); RED CELL DISTRIBUTION WIDTH 14.9 % (11.6-16.5); WHITE BLOOD COUNT 4.2 X10^3/uL (3.6-10.0)
[2022-02-14 05:42] LABS: ALANINE AMINOTRANSFERASE 76 Units/L (12-78); ALBUMIN 2.5 g/dL (3.4-5.0); ALKALINE PHOSPHATASE 50 Units/L (46-116); ASPARTATE AMINO TRANSFERASE 33 Units/L (15-37); BLOOD UREA NITROGEN 3 mg/dL (7-18); CALCIUM 7.5 mg/dL (8.5-10.1); CARBON DIOXIDE 22.9 mmol/L (21-32); CHLORIDE 109 mmol/L (98-107); COR CA(FOR HYPOALB) 8.7 mg/dL (8.5-10.1); CREATININE 0.61 mg/dL (0.55-1.02); SODIUM 141 mmol/L (136-145); TOTAL PROTEIN 5.2 g/dL (6.4-8.2); eGFR NON BLACK RACES > 60 (>60)
[2022-02-14] MEDS: K-DUR TAB 20 MEQ PO PRN (10:30)
--- NOTE | 2022-02-14 12:50 | DR.PROGNOT ---
Hospital Progress Notes - Progress Note for Day of: Progress Note Date: 02/14/22 - Chief Complaint Chief Complaint: no recurrence of her rectal prolapse today or last night .. having mild mucus and bleeding .. more alert and cheerful . - Past Medical Family Social History Past Med/Fam/Surg Hx: No changes since H&P Allergies: Allergies Sulfa (Sulfonamide Antibiotics) Adverse Reaction (Verified 02/11/22 16:42) - Review Of Systems ROS: No change since H&P - Vital Signs Vital Signs: Temperature 99.6 F Pulse Rate [Left Radial] 77 Pulse Rate 63 Respiratory Rate 18 Blood Pressure [Right Arm] 109/69 Blood Pressure [Left Arm] 98/58 Blood Pressure 107/67 O2 Sat by Pulse Oximetry 97 - Physical Exam Oriented: Normal Eyes: Normal Ear: Normal Nose: Normal Throat: Normal Respiratory: Normal Cardiovascular: Normal : Normal GI:Auscultation: Normal GI:Palpation: Normal GI: Tenderness: Normal, Other (rectal exam showed complete reduction of the prolapse ..) Skin: Normal Musculoskeletal: Normal Psychiatric: Normal Mood Description: Calm Affect: Normal. negative: Angry Speech Pattern: Clear, Appropriate - Laboratory and Diagnostics Result Diagrams: 02/14/22 04:56 02/14/22 04:56 Labs: Laboratory WBC 4.2 X10^3/uL (3.6-10.0) 02/14/22 04:56 RBC 3.42 X10^6/uL (3.5-5.4) L 02/14/22 04:56 Hgb 10.9 g/dL (12.0-16.0) L 02/14/22 04:56 Hct 31.9 % (36.0-47.0) L 02/14/22 04:56 MCV 93.4 fL (80.0-100.0) 02/14/22 04:56 MCH 31.8 pg (27.0-34.0) 02/14/22 04:56 MCHC 34.1 g/dL (33.0-35.0) 02/14/22 04:56 RDW 14.9 % (11.6-16.5) 02/14/22 04:56 Plt Count 170 X10^3/uL (150.0-450.0) 02/14/22 04:56 MPV 9.3 fL (7.4-11.0) 02/14/22 04:56 Neut % (Auto) 43.5 % (42.0-75.0) 02/14/22 04:56 Lymph % (Auto) 32.7 % (21.0-51.0) 02/14/22 04:56 [place] % (Auto) 17.6 % (0.0-13.0) H 02/14/22 04:56 Eos % (Auto) 5.5 % (0.9-2.9) H 02/14/22 04:56 Baso % (Auto) 0.7 % (0.2-1.0) 02/14/22 04:56 Neut # (Auto) 1.8 x10^3/uL (2.2-4.8) L 02/14/22 04:56 Lymph # (Auto) 1.4 X10^3/uL (1.3-2.9) 02/14/22 04:56 [place] # (Auto) 0.7 x10^3/uL (0.3-0.8) 02/14/22 04:56 Eos # (Auto) 0.2 x10^3/uL (0.0-0.2) 02/14/22 04:56 Baso # (Auto) 0.0 X10^3/uL (0.0-0.1) 02/14/22 04:56 Absolute Nucleated RBC 0.0 /100WBC 02/14/22 04:56 PT 14.0 SECONDS (11.8-14.3) 02/11/22 17:10 INR Target Range - 02/11/22 17:10 INR 1.14 (0.8-1.3) 02/11/22 17:10 APTT 25.4 SECONDS (22.9-36.5) 02/11/22 17:10 PTT Comment - 02/11/22 17:10 Sodium 141 mmol/L (136-145) 02/14/22 04:56 Corrected Sodium TNP 02/14/22 04:56 Potassium 3.4 mmol/L (3.5-5.1) L 02/14/22 04:56 Chloride 109 mmol/L (98-107) H 02/14/22 04:56 Carbon Dioxide 22.9 mmol/L (21-32) 02/14/22 04:56 BUN 3 mg/dL (7-18) L 02/14/22 04:56 Creatinine 0.61 mg/dL (0.55-1.02) 02/14/22 04:56 Est GFR (MDRD) Af Amer > 60 (>60) 02/14/22 04:56 Est GFR (MDRD) Non-Af > 60 (>60) 02/14/22 04:56 Glucose 93 mg/dL (65-99) 02/14/22 04:56 Calcium 7.5 mg/dL (8.5-10.1) L 02/14/22 04:56 Corrected Calcium 8.7 mg/dL (8.5-10.1) 02/14/22 04:56 Magnesium 2.1 mg/dL (1.7-2.9) 02/14/22 04:56 Total Bilirubin 0.30 mg/dL (0.2-1.0) 02/14/22 04:56 AST 33 Units/L (15-37) 02/14/22 04:56 ALT 76 Units/L (12-78) 02/14/22 04:56 Alkaline Phosphatase 50 Units/L (46-116) 02/14/22 04:56 Ammonia 16 umol/L (11-32) 02/11/22 17:10 Total Protein 5.2 g/dL (6.4-8.2) L 02/14/22 04:56 Albumin 2.5 g/dL (3.4-5.0) L 02/14/22 04:56 Globulin 2.7 g/dL (2.5-4.5) 02/14/22 04:56 Albumin/Globulin Ratio 0.9 Ratio (1.1-2.1) L 02/14/22 04:56 Lipase 89 Units/L (73-393) 02/11/22 17:10 Vitamin B12 445 pg/mL (193-986) 02/12/22 05:40 Folate > 20.0 ng/mL (>8.6) 02/12/22 05:40 TSH 3rd Generation 2.128 uIU/mL (0.358-3.74) 02/12/22 05:40 Specimen Type Catherized urine 02/11/22 17:57 Urine Color Yellow (YELLOW) 02/11/22 17:57 Urine Appearance Clear (CLEAR) 02/11/22 17:57 Urine pH 5.0 (5.0 - 8.0) 02/11/22 17:57 Ur Specific [place] 1.020 (1.000-1.030) 02/11/22 17:57 Urine Protein 2+ (NEGATIVE) 02/11/22 17:57 Urine Glucose (UA) Negative (NEGATIVE) 02/11/22 17:57 Urine Ketones 2+ (NEGATIVE) 02/11/22 17:57 Urine Occult Blood 2+ (NEGATIVE) 02/11/22 17:57 Urine Nitrite Negative (NEGATIVE) 02/11/22 17:57 Urine Bilirubin Negative (NEGATIVE) 02/11/22 17:57 Urine Urobilinogen Normal (NORMAL) 02/11/22 17:57 Ur Leukocyte Esterase 1+ (NEGATIVE) 02/11/22 17:57 Urine RBC 3-5 /HPF (0-3) A 02/11/22 17:57 Urine WBC 3-5 /HPF (0-5) 02/11/22 17:57 Ur Squamous Epith Cells Few /HPF (NEGATIVE) 02/11/22 17:57 Urine Bacteria Trace /HPF (NEGATIVE) 02/11/22 17:57 Urine Mucus Few /HPF (NEGATIVE) 02/11/22 17:57 Ur Culture Indicated? No/not indicated 02/11/22 17:57 Urine Opiates Screen Negative (NEG=<300) 02/11/22 17:57 Urine Methadone Screen Negative (NEG=<300) 02/11/22 17:57 Ur Barbiturates Screen Negative (NEG=<200) 02/11/22 17:57 Ur Phencyclidine Scrn Negative (NEG=<25) 02/11/22 17:57 Ur Amphetamines Screen Negative (NEG=<1000) 02/11/22 17:57 U Benzodiazepines Scrn Negative (NEG=<200) 02/11/22 17:57 Urine Cocaine Screen Negative (NEG=<300) 02/11/22 17:57 U Marijuana (THC) Screen Negative (NEG=<50) 02/11/22 17:57 SARS CoV-2 RNA Rapid DEBORAH Negative (NEGATIVE) 02/11/22 17:59 - Assessment and Plan 1: recurrent rectal prolapse .reduced now. alcohol abuse . if the prolapse stays in will cancel the surgery . advance diet to soft . - Problem Patient Problems: Patient Problems Complete rectal prolapse (Acute) K62.3 Alcohol abuse (Acute) F10.10
--- NOTE | 2022-02-14 14:58 | PCM.PROG ---
Progress Note Progress Note for Day of Date of Exam: 02/14/22 Subjective Subjective: The patient is alert this morning. She has no complaints today. She is to have surgery tomorrow for her rectocele. The patient's labs have been reviewed this morning and are within normal limits as well as her vital signs. The patient will receive by mouth potassium this morning. Past Medical Family Social History Past Med/Fam/Surg Hx: No changes since H&P Allergies: Allergies Sulfa (Sulfonamide Antibiotics) Adverse Reaction (Verified 02/11/22 16:42) Review of Systems ROS: No change since H&P Vital Signs and I&O's Vital Signs: Temperature 99.6 F Pulse Rate [Left Radial] 77 Pulse Rate 63 Respiratory Rate 18 Blood Pressure [Right Arm] 109/69 Blood Pressure [Left Arm] 98/58 Blood Pressure 107/67 O2 Sat by Pulse Oximetry 97 Intake and Output: Intake & Output 02/12/22 02/13/22 02/14/22 02/15/22 11:59 11:59 11:59 11:59 Intake Total 1550 / 1550 2094 / 2094 4900 / 4900 Output Total 625 / 625 1025 / 1025 Balance 925 / 925 1069 / 1069 4900 / 4900 Physical Exam Oriented: Normal Eyes: Normal Ear: Normal Nose: Normal Throat: Normal Respiratory: Normal Cardiovascular: Normal : Normal Auscultation: Bowel Sounds: Normal Tenderness: Normal and Other (rectal exam showed complete reduction of the prolapse ..) Skin: Normal Musculoskeletal: Normal Psychiatric: Normal Mood Description: Calm Affect: Normal; negative Angry Speech Pattern: Clear and Appropriate Laboratory and Diagnostics Result Diagrams: 02/14/22 04:56 02/14/22 04:56 Labs: Laboratory WBC 4.2 X10^3/uL (3.6-10.0) 02/14/22 04:56 RBC 3.42 X10^6/uL (3.5-5.4) L 02/14/22 04:56 Hgb 10.9 g/dL (12.0-16.0) L 02/14/22 04:56 Hct 31.9 % (36.0-47.0) L 02/14/22 04:56 MCV 93.4 fL (80.0-100.0) 02/14/22 04:56 MCH 31.8 pg (27.0-34.0) 02/14/22 04:56 MCHC 34.1 g/dL (33.0-35.0) 02/14/22 04:56 RDW 14.9 % (11.6-16.5) 02/14/22 04:56 Plt Count 170 X10^3/uL (150.0-450.0) 02/14/22 04:56 MPV 9.3 fL (7.4-11.0) 02/14/22 04:56 Neut % (Auto) 43.5 % (42.0-75.0) 02/14/22 04:56 Lymph % (Auto) 32.7 % (21.0-51.0) 02/14/22 04:56 [place] % (Auto) 17.6 % (0.0-13.0) H 02/14/22 04:56 Eos % (Auto) 5.5 % (0.9-2.9) H 02/14/22 04:56 Baso % (Auto) 0.7 % (0.2-1.0) 02/14/22 04:56 Neut # (Auto) 1.8 x10^3/uL (2.2-4.8) L 02/14/22 04:56 Lymph # (Auto) 1.4 X10^3/uL (1.3-2.9) 02/14/22 04:56 [place] # (Auto) 0.7 x10^3/uL (0.3-0.8) 02/14/22 04:56 Eos # (Auto) 0.2 x10^3/uL (0.0-0.2) 02/14/22 04:56 Baso # (Auto) 0.0 X10^3/uL (0.0-0.1) 02/14/22 04:56 Absolute Nucleated RBC 0.0 /100WBC 02/14/22 04:56 PT 14.0 SECONDS (11.8-14.3) 02/11/22 17:10 INR Target Range - 02/11/22 17:10 INR 1.14 (0.8-1.3) 02/11/22 17:10 APTT 25.4 SECONDS (22.9-36.5) 02/11/22 17:10 PTT Comment - 02/11/22 17:10 Sodium 141 mmol/L (136-145) 02/14/22 04:56 Corrected Sodium TNP 02/14/22 04:56 Potassium 3.4 mmol/L (3.5-5.1) L 02/14/22 04:56 Chloride 109 mmol/L (98-107) H 02/14/22 04:56 Carbon Dioxide 22.9 mmol/L (21-32) 02/14/22 04:56 BUN 3 mg/dL (7-18) L 02/14/22 04:56 Creatinine 0.61 mg/dL (0.55-1.02) 02/14/22 04:56 Est GFR (MDRD) Af Amer > 60 (>60) 02/14/22 04:56 Est GFR (MDRD) Non-Af > 60 (>60) 02/14/22 04:56 Glucose 93 mg/dL (65-99) 02/14/22 04:56 Calcium 7.5 mg/dL (8.5-10.1) L 02/14/22 04:56 Corrected Calcium 8.7 mg/dL (8.5-10.1) 02/14/22 04:56 Magnesium 2.1 mg/dL (1.7-2.9) 02/14/22 04:56 Total Bilirubin 0.30 mg/dL (0.2-1.0) 02/14/22 04:56 AST 33 Units/L (15-37) 02/14/22 04:56 ALT 76 Units/L (12-78) 02/14/22 04:56 Alkaline Phosphatase 50 Units/L (46-116) 02/14/22 04:56 Ammonia 16 umol/L (11-32) 02/11/22 17:10 Total Protein 5.2 g/dL (6.4-8.2) L 02/14/22 04:56 Albumin 2.5 g/dL (3.4-5.0) L 02/14/22 04:56 Globulin 2.7 g/dL (2.5-4.5) 02/14/22 04:56 Albumin/Globulin Ratio 0.9 Ratio (1.1-2.1) L 02/14/22 04:56 Lipase 89 Units/L (73-393) 02/11/22 17:10 Vitamin B12 445 pg/mL (193-986) 02/12/22 05:40 Folate > 20.0 ng/mL (>8.6) 02/12/22 05:40 TSH 3rd Generation 2.128 uIU/mL (0.358-3.74) 02/12/22 05:40 Specimen Type Catherized urine 02/11/22 17:57 Urine Color Yellow (YELLOW) 02/11/22 17:57 Urine Appearance Clear (CLEAR) 02/11/22 17:57 Urine pH 5.0 (5.0 - 8.0) 02/11/22 17:57 Ur Specific [place] 1.020 (1.000-1.030) 02/11/22 17:57 Urine Protein 2+ (NEGATIVE) 02/11/22 17:57 Urine Glucose (UA) Negative (NEGATIVE) 02/11/22 17:57 Urine Ketones 2+ (NEGATIVE) 02/11/22 17:57 Urine Occult Blood 2+ (NEGATIVE) 02/11/22 17:57 Urine Nitrite Negative (NEGATIVE) 02/11/22 17:57 Urine Bilirubin Negative (NEGATIVE) 02/11/22 17:57 Urine Urobilinogen Normal (NORMAL) 02/11/22 17:57 Ur Leukocyte Esterase 1+ (NEGATIVE) 02/11/22 17:57 Urine RBC 3-5 /HPF (0-3) A 02/11/22 17:57 Urine WBC 3-5 /HPF (0-5) 02/11/22 17:57 Ur Squamous Epith Cells Few /HPF (NEGATIVE) 02/11/22 17:57 Urine Bacteria Trace /HPF (NEGATIVE) 02/11/22 17:57 Urine Mucus Few /HPF (NEGATIVE) 02/11/22 17:57 Ur Culture Indicated? No/not indicated 02/11/22 17:57 Urine Opiates Screen Negative (NEG=<300) 02/11/22 17:57 Urine Methadone Screen Negative (NEG=<300) 02/11/22 17:57 Ur Barbiturates Screen Negative (NEG=<200) 02/11/22 17:57 Ur Phencyclidine Scrn Negative (NEG=<25) 02/11/22 17:57 Ur Amphetamines Screen Negative (NEG=<1000) 02/11/22 17:57 U Benzodiazepines Scrn Negative (NEG=<200) 02/11/22 17:57 Urine Cocaine Screen Negative (NEG=<300) 02/11/22 17:57 U Marijuana (THC) Screen Negative (NEG=<50) 02/11/22 17:57 SARS CoV-2 RNA Rapid DEBORAH Negative (NEGATIVE) 02/11/22 17:59 Plan (1) Hypokalemia: Status: Acute Plan: Potassium replacement protocol. 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
[2022-02-14] MEDS: LIBRIUM PO PRN (21:59)
[2022-02-15 06:18] LABS: BASOPHILS % (AUTO) 0.3 % (0.2-1.0); EOSINOPHILS # (AUTO) 0.2 x10^3/uL (0.0-0.2); EOSINOPHILS % (AUTO) 4.8 % (0.9-2.9); HEMATOCRIT 33.4 % (36.0-47.0); HEMOGLOBIN 11.4 g/dL (12.0-16.0); LYMPHOCYTES # (AUTO) 1.4 X10^3/uL (1.3-2.9); LYMPHOCYTES % (AUTO) 30.8 % (21.0-51.0); MEAN CORPUSCULAR HGB CONC 34.2 g/dL (33.0-35.0); MEAN CORPUSCULAR VOLUME 93.6 fL (80.0-100.0); MEAN PLATELET VOLUME 9.3 fL (7.4-11.0); MONOCYTES % (AUTO) 20.8 % (0.0-13.0); NEUTROPHILS % (AUTO) 43.3 % (42.0-75.0); RED BLOOD COUNT 3.57 X10^6/uL (3.5-5.4); RED CELL DISTRIBUTION WIDTH 14.8 % (11.6-16.5); WHITE BLOOD COUNT 4.7 X10^3/uL (3.6-10.0)
[2022-02-15 06:46] LABS: ALANINE AMINOTRANSFERASE 65 Units/L (12-78); ALBUMIN 2.6 g/dL (3.4-5.0); ALKALINE PHOSPHATASE 52 Units/L (46-116); ASPARTATE AMINO TRANSFERASE 22 Units/L (15-37); BLOOD UREA NITROGEN 2 mg/dL (7-18); CALCIUM 7.8 mg/dL (8.5-10.1); CARBON DIOXIDE 25.4 mmol/L (21-32); CHLORIDE 105 mmol/L (98-107); COR CA(FOR HYPOALB) 8.9 mg/dL (8.5-10.1); CREATININE 0.61 mg/dL (0.55-1.02); SODIUM 140 mmol/L (136-145); TOTAL PROTEIN 5.4 g/dL (6.4-8.2); eGFR NON BLACK RACES > 60 (>60)
[2022-02-15 07:12] LABS: BAND NEUTROPHILS % 1 % (0-10); METAMYELOCYTES % 2; PLATELET MORPHOLOGY COMMENT NORMAL (NORMAL)
[2022-02-15] MEDS: D5 1/2 NS 1,000 ML 1,000 ML IV SCH ×2 (07:53→11:22)
[2022-02-15] MEDS: ZOSYN VIAL 3.375 GRAMS 3.375 G in NS 100 ML IV 100 ML IV SCH ×2 (07:54→13:50)
[2022-02-15] MEDS: K-DUR TAB 20 MEQ PO PRN (10:02)
[2022-02-15 13:50] VITALS: BP 115/69
--- NOTE | 2022-02-15 15:48 | PCM.PROG ---
Progress Note Progress Note for Day of Date of Exam: 02/15/22 Subjective Subjective: The patient resting this morning. No new problems since yesterday. Her potassium remains low today. He is receiving potassium replacement protocol. General surgery sees it discharging her home today. She is medically cleared to be discharged today also. I will discharge her home with chloride 10 mEq 1 by mouth daily 1 week for her recent episodes of hypokalemia. Past Medical Family Social History Past Med/Fam/Surg Hx: No changes since H&P Allergies: Allergies Sulfa (Sulfonamide Antibiotics) Adverse Reaction (Verified 02/11/22 16:42) Review of Systems ROS: No change since H&P Vital Signs and I&O's Vital Signs: Temperature 97.7 F Pulse Rate [Left Radial] 61 Pulse Rate 63 Respiratory Rate 18 Blood Pressure [Right Arm] 115/69 Blood Pressure [Left Arm] 98/58 Blood Pressure 107/67 O2 Sat by Pulse Oximetry 98 Intake and Output: Intake & Output 02/13/22 02/14/22 02/15/22 02/16/22 11:59 11:59 11:59 11:59 Intake Total 2094 / 2094 4900 / 4900 3568 / 3568 Output Total 1025 / 1025 Balance 1069 / 1069 4900 / 4900 3568 / 3568 Physical Exam Oriented: Normal Eyes: Normal Ear: Normal Nose: Normal Throat: Normal Respiratory: Normal Cardiovascular: Normal : Normal Auscultation: Bowel Sounds: Normal Tenderness: Normal and Other (rectal exam showed complete reduction of the prolapse ..) Skin: Normal Musculoskeletal: Normal Psychiatric: Normal Mood Description: Calm Affect: Normal; negative Angry Speech Pattern: Clear and Appropriate Laboratory and Diagnostics Result Diagrams: 02/15/22 05:27 02/15/22 13:00 Labs: Laboratory WBC 4.7 X10^3/uL (3.6-10.0) 02/15/22 05:27 RBC 3.57 X10^6/uL (3.5-5.4) 02/15/22 05:27 Hgb 11.4 g/dL (12.0-16.0) L 02/15/22 05:27 Hct 33.4 % (36.0-47.0) L 02/15/22 05:27 MCV 93.6 fL (80.0-100.0) 02/15/22 05:27 MCH 32.0 pg (27.0-34.0) 02/15/22 05:27 MCHC 34.2 g/dL (33.0-35.0) 02/15/22 05:27 RDW 14.8 % (11.6-16.5) 02/15/22 05:27 Plt Count 230 X10^3/uL (150.0-450.0) 02/15/22 05:27 Plt Count Comment Adequate (ADEQUATE) 02/15/22 05:27 MPV 9.3 fL (7.4-11.0) 02/15/22 05:27 Neut % (Auto) 43.3 % (42.0-75.0) 02/15/22 05:27 Lymph % (Auto) 30.8 % (21.0-51.0) 02/15/22 05:27 [place] % (Auto) 20.8 % (0.0-13.0) H 02/15/22 05:27 Eos % (Auto) 4.8 % (0.9-2.9) H 02/15/22 05:27 Baso % (Auto) 0.3 % (0.2-1.0) 02/15/22 05:27 Neut # (Auto) 2.0 x10^3/uL (2.2-4.8) L 02/15/22 05:27 Lymph # (Auto) 1.4 X10^3/uL (1.3-2.9) 02/15/22 05:27 [place] # (Auto) 1.0 x10^3/uL (0.3-0.8) H 02/15/22 05:27 Eos # (Auto) 0.2 x10^3/uL (0.0-0.2) 02/15/22 05:27 Baso # (Auto) 0.0 X10^3/uL (0.0-0.1) 02/15/22 05:27 Absolute Nucleated RBC 0.1 /100WBC 02/15/22 05:27 Total Counted 100 02/15/22 05:27 Neutrophils % (Manual) 52 % (39-76) 02/15/22 05:27 Band Neutrophils % 1 % (0-10) 02/15/22 05:27 Lymphocytes % (Manual) 33 % (13-43) 02/15/22 05:27 Monocytes % (Manual) 11 % (4-9) H 02/15/22 05:27 Eosinophils % (Manual) 1 % (0-6) 02/15/22 05:27 Metamyelocytes % 2 02/15/22 05:27 Plt Morphology Comment Normal (NORMAL) 02/15/22 05:27 RBC Morphology Normal (NORMAL) 02/15/22 05:27 PT 14.0 SECONDS (11.8-14.3) 02/11/22 17:10 INR Target Range - 02/11/22 17:10 INR 1.14 (0.8-1.3) 02/11/22 17:10 APTT 25.4 SECONDS (22.9-36.5) 02/11/22 17:10 PTT Comment - 02/11/22 17:10 Sodium 140 mmol/L (136-145) 02/15/22 05:27 Corrected Sodium TNP 02/15/22 05:27 Potassium 3.5 mmol/L (3.5-5.1) 02/15/22 13:00 Chloride 105 mmol/L (98-107) 02/15/22 05:27 Carbon Dioxide 25.4 mmol/L (21-32) 02/15/22 05:27 BUN 2 mg/dL (7-18) L 02/15/22 05:27 Creatinine 0.61 mg/dL (0.55-1.02) 02/15/22 05:27 Est GFR (MDRD) Af Amer > 60 (>60) 02/15/22 05:27 Est GFR (MDRD) Non-Af > 60 (>60) 02/15/22 05:27 Glucose 105 mg/dL (65-99) H 02/15/22 05:27 Calcium 7.8 mg/dL (8.5-10.1) L 02/15/22 05:27 Corrected Calcium 8.9 mg/dL (8.5-10.1) 02/15/22 05:27 Magnesium 2.1 mg/dL (1.7-2.9) 02/14/22 04:56 Total Bilirubin 0.20 mg/dL (0.2-1.0) 02/15/22 05:27 AST 22 Units/L (15-37) 02/15/22 05:27 ALT 65 Units/L (12-78) 02/15/22 05:27 Alkaline Phosphatase 52 Units/L (46-116) 02/15/22 05:27 Ammonia 16 umol/L (11-32) 02/11/22 17:10 Total Protein 5.4 g/dL (6.4-8.2) L 02/15/22 05:27 Albumin 2.6 g/dL (3.4-5.0) L 02/15/22 05:27 Globulin 2.8 g/dL (2.5-4.5) 02/15/22 05:27 Albumin/Globulin Ratio 0.9 Ratio (1.1-2.1) L 02/15/22 05:27 Lipase 89 Units/L (73-393) 02/11/22 17:10 Vitamin B12 445 pg/mL (193-986) 02/12/22 05:40 Folate > 20.0 ng/mL (>8.6) 02/12/22 05:40 TSH 3rd Generation 2.128 uIU/mL (0.358-3.74) 02/12/22 05:40 Specimen Type Catherized urine 02/11/22 17:57 Urine Color Yellow (YELLOW) 02/11/22 17:57 Urine Appearance Clear (CLEAR) 02/11/22 17:57 Urine pH 5.0 (5.0 - 8.0) 02/11/22 17:57 Ur Specific [place] 1.020 (1.000-1.030) 02/11/22 17:57 Urine Protein 2+ (NEGATIVE) 02/11/22 17:57 Urine Glucose (UA) Negative (NEGATIVE) 02/11/22 17:57 Urine Ketones 2+ (NEGATIVE) 02/11/22 17:57 Urine Occult Blood 2+ (NEGATIVE) 02/11/22 17:57 Urine Nitrite Negative (NEGATIVE) 02/11/22 17:57 Urine Bilirubin Negative (NEGATIVE) 02/11/22 17:57 Urine Urobilinogen Normal (NORMAL) 02/11/22 17:57 Ur Leukocyte Esterase 1+ (NEGATIVE) 02/11/22 17:57 Urine RBC 3-5 /HPF (0-3) A 02/11/22 17:57 Urine WBC 3-5 /HPF (0-5) 02/11/22 17:57 Ur Squamous Epith Cells Few /HPF (NEGATIVE) 02/11/22 17:57 Urine Bacteria Trace /HPF (NEGATIVE) 02/11/22 17:57 Urine Mucus Few /HPF (NEGATIVE) 02/11/22 17:57 Ur Culture Indicated? No/not indicated 02/11/22 17:57 Urine Opiates Screen Negative (NEG=<300) 02/11/22 17:57 Urine Methadone Screen Negative (NEG=<300) 02/11/22 17:57 Ur Barbiturates Screen Negative (NEG=<200) 02/11/22 17:57 Ur Phencyclidine Scrn Negative (NEG=<25) 02/11/22 17:57 Ur Amphetamines Screen Negative (NEG=<1000) 02/11/22 17:57 U Benzodiazepines Scrn Negative (NEG=<200) 02/11/22 17:57 Urine Cocaine Screen Negative (NEG=<300) 02/11/22 17:57 U Marijuana (THC) Screen Negative (NEG=<50) 02/11/22 17:57 SARS CoV-2 RNA Rapid DEBORAH Negative (NEGATIVE) 02/11/22 17:59 Plan (1) Hypokalemia: Status: Acute Plan: Potassium replacement protocol. 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
== END 2022-02-15 14:29 | disposition home or self-care (01) | DRG 330 ==
LOC: ER 16:40 → MED/SURG 18:50
PROVIDERS: ADMIT Surgery; ATTEND Surgery